=== PATIENT | female | born 1995 | race Caucasian/White ===

== ENCOUNTER 2017-08-13 19:29 | Emergency (ER) | END 2017-08-13 19:44 | disposition home or self-care (01) ==

== ENCOUNTER 2017-10-18 15:56 | Emergency (ER) | END 2017-10-18 23:27 | disposition home or self-care (01) ==

== ENCOUNTER 2018-11-23 21:43 | Emergency (ER) | payer MEDICAID ==
[~2018-11-23] VITALS: Ht 162.6 cm; Wt 74.0 kg
[~2018-11-23 21:43] MED LIST: CLIN100S VG; FLUC150T PO; IBUP-1542 PO; NAPR-985 PO; VALA10004 PO
[2018-11-23 21:45] VITALS: BP 141/65; PULSE 80; RESP 16; Ht 162.6 cm; Wt 74.0 kg
--- NOTE | 2018-11-24 00:09 | ERD ---
ER Documentation Chief Complaint Chief Complaint Pt reports 6 weeks preg and spotting this morning HPI Patient is a 22-year-old female, G1, P0, approximately 6 weeks , presents the ER for concerns of vaginal spotting which started this morning. Patient states she noticed blood when only wiping. Patient reports mild pelvic cramping. She denies any fevers, chills, nausea, vomiting or diarrhea. Patient also reports dysuria. Patient states her last mental period was 09-18-18. Patient does not know the name of her [employer]MENT [employer]. ROS All systems reviewed and are negative except as per history of present illness. Medications Home Meds Active Scripts Clindamycin Phosphate (Cleocin) 100 Mg Supp.vag, 100 MG VG QHS for 3 Days, #3 SUPP.VAG Prov:MARCELA,ADALBERTO 10/18/17 Naproxen* (Naprosyn*) 500 Mg Tablet, 500 MG PO BID PRN for PAIN AND/OR INFLAMMATION, #20 TAB Prov:MARCELA,ADALBERTO 10/18/17 Fluconazole* (Diflucan*) 150 Mg Tablet, 150 MG PO ONCE, #1 TAB 1 Refill Prov:MARCELA,ADALBERTO 10/18/17 Ibuprofen* (Motrin*) 600 Mg Tab, 600 MG PO Q6, #15 TAB Prov:CHANDLER PISANO PA-C 08/13/17 valACYclovir HCl (Valtrex) 1,000 Mg Tablet, 1000 MG PO TID for 7 Days, #21 TAB Prov:CHANDLER PISANO PA-C 08/13/17 Allergies Allergies: Coded Allergies: No Known Allergy (Unverified , 11/23/18) PMhx/Soc Medical and Surgical Hx: pt denies Medical Hx, pt denies Surgical Hx Hx Alcohol Use: No Hx Substance Use: No Hx Tobacco Use: No Smoking Status: Never smoker FmHx Family History: No diabetes Physical Exam Vitals Vital Signs Date Temp Pulse Resp B/P (MAP) Pulse Ox O2 O2 Flow FiO2 Time Delivery Rate 11/23/18 98.8 80 16 141/65 100 21:45 (90) Physical Exam GENERAL: Well-developed, well-nourished female. Appears in no acute distress. HEAD: Normocephalic, atraumatic. EYES: Pupils are equally reactive bilaterally. EOMs grossly intact. No conjunctival erythema. ENT: Moist mucous membranes. No uvula deviation. No kissing tonsils. NECK: Supple. No meningismus. Normal range of motion of the neck. LUNG: Clear to auscultation bilaterally. No rhonchi, wheezing, rales or coarse breath sounds. HEART: Regular rate and rhythm. No murmurs, rubs or gallops. ABDOMEN:. Soft, nontender, and nondistended. Positive bowel sounds in all four quadrants. No rebound tenderness, no guarding. (-) McBurney's point tenderness. No CVA tenderness. EXTREMITIES: Equal pulses bilaterally. No peripheral clubbing, cyanosis or edema. No unilateral leg swelling. NEUROLOGIC: Alert and oriented. Moving all four extremities without any difficul ty. Normal speech. Steady gait. SKIN: Normal color. Warm and dry. No rashes or lesions. Result Diagram: 11/24/18 0010 Results 24 hrs Laboratory Tests Test 11/24/18 00:10 White Blood Count 7.4 10^3/ul Red Blood Count 3.96 10^6/ul Hemoglobin 11.8 g/dl Hematocrit 35.4 % Mean Corpuscular Volume 89.4 fl Mean Corpuscular Hemoglobin 29.8 pg Mean Corpuscular Hemoglobin Concent 33.3 g/dl Red Cell Distribution Width 12.6 % Platelet Count 241 10^3/UL Mean Platelet Volume 9.3 fl Immature Granulocytes % 0.300 % Neutrophils % 60.3 % Lymphocytes % 28.8 % Monocytes % 6.8 % Eosinophils % 3.4 % Basophils % 0.4 % Nucleated Red Blood Cells % 0.0 /100WBC Immature Granulocytes # 0.020 10^3/ul Neutrophils # 4.5 10^3/ul Lymphocytes # 2.1 10^3/ul Monocytes # 0.5 10^3/ul Eosinophils # 0.3 10^3/ul Basophils # 0.0 10^3/ul Nucleated Red Blood Cells # 0.0 10^3/ul Urine Color YELLOW Urine Clarity SLIGHTLY CLOUDY Urine pH 8.0 Urine Specific [place] 1.008 Urine Ketones NEGATIVE mg/dL Urine Nitrite NEGATIVE mg/dL Urine Bilirubin NEGATIVE mg/dL Urine Urobilinogen NEGATIVE mg/dL Urine Leukocyte Esterase TRACE Jasson/ul Urine Microscopic RBC 1 /HPF Urine Microscopic WBC 2 /HPF Urine Squamous Epithelial Cells FEW /HPF Urine Hemoglobin 1+ mg/dL Urine Glucose NEGATIVE mg/dL Urine Total Protein NEGATIVE mg/dl Beta HCG, Quantitative 07357.0 mIU/ml Procedures/MDM ED COURSE: The patient was stable throughout ED course. I kept the patient and/or family informed of laboratory and diagnostic imaging results throughout the ED course. DIAGNOSTIC IMAGING: Read by radiologist. Patient: DANNA RAYMUNDO : 1995 Age: 22 Sex: F MR #: [id number] DOS: 11/24/18 2354 Ordering MD: VIRGINIA YOUNGER PA-C Location: [facility] Room/Bed: PROCEDURE: US OB. CLINICAL INDICATION: Vaginal bleeding in early . TECHNIQUE: Transabdominal and transvaginal views of the pelvis are available for review. COMPARISON: No prior studies are available for comparison. FINDINGS: A single intrauterine gestational sac is evident. A yolk sac is evident. [place]-rump length: 8 mm Gestational sac diameter: 2.0 cm heart rate: 139 beats per minute. Ultrasound estimated gestational age: 6 weeks 5 days by crown-rump length No ovarian or adnexal mass lesion is seen. There is no free fluid. . IMPRESSION: 1. Single live intrauterine with an estimated gestational age of 6 weeks 5 days by crown-rump length. This yields an estimated due date of 07/15/2019. RPTAT:AAJJ Physician Giovanna Date Time Electronically viewed and signed by Physician Giovanna on 11/24/2018 01:36 GW/ CC: VIRGINIA YOUNGER PA-C [id number] PROCEDURES: None. MEDICAL DECISION MAKING: This is a 22-year-old female, G1, P0, presents the ER for concerns of vaginal spotting. Vital signs were reviewed. Patient was afebrile. Patient was hemodynamically stable. Quantitative b-HCG was 144[address]. Patient's blood type was noted to be be positive, no indication for RhoGam at this time. CBC showed no evidence of systemic infection. Pelvic US showed Single live intrauterine with an estimated gestational age of 6 weeks 5 days by crown-rump length. This yields an estimated due date of 07/15/2019. Given these findings, the patients presentation is most consistent with threate edna . Low suspicion for ectopic , ruptured ectopic , molar , subchorionic hematoma, spontaneous , incomplete , complete , missed , placental abruption, placental previa, vasa previa, uterine rupture, anembyronic . DISCHARGE: At this time, patient is stable for discharge and outpatient management. I had a conversation at length with the patient about the concerns of vaginal bleeding during the 1st trimester of . Patient and/or family understands that her vaginal bleeding can be a normal finding or a sign of miscarriage. I have instructed the patient to follow-up with her OBGYN in 1-2 days for further monit oring including a repeat b-HCG level. I have instructed the patient to promptly return to the ER at any time for any new or worsening symptoms including increased pain, nausea, vomiting, continued bleeding, weakness, syncope or fever. The patient and/or family expressed understanding of and agreement with this plan. All questions were answered. Home care instructions were provided. Disclaimer: Inadvertent spelling and grammatical errors are likely due to EHR/dictation software use and do not reflect on the overall quality of patient care. Also, please note that the electronic time recorded on this note does not necessarily reflect the actual time of the patient encounter. Departure Diagnosis: Primary Impression: Vaginal bleeding in patient at less than 20 weeks ges... Patient Instructions: Bleeding During Early Referrals: [facility] YOU HAVE RECEIVED A MEDICAL SCREENING EXAM AND THE RESULTS INDICATE THAT YOU DO NOT HAVE A CONDITION THAT REQUIRES URGENT TREATMENT IN THE EMERGENCY DEPARTMENT. FURTHER EVALUATION AND TREATMENT OF YOUR CONDITION CAN WAIT UNTIL YOU ARE SEEN IN YOUR DOCTORS OFFICE WITHIN THE NEXT 1-2 DAYS. IT IS YOUR RESPONSIBILITY TO MAKE AN APPOINTMENT FOR FOLOW-UP CARE. IF YOU HAVE A PRIMARY DOCTOR --you should call your primary doctor and schedule an appointment IF YOU DO NOT HAVE A PRIMARY DOCTOR YOU CAN CALL OUR PHYSICIAN REFERRAL HOTLINE AT IF YOU CAN NOT AFFORD TO SEE A PHYSICIAN YOU CAN CHOSE FROM THE FOLLOWING [facility] [address] [facility]. [facility] [address] [facility] [facility] [address] [facility] [address] [facility] [facility] [address] [facility] [facility] [address] [facility]. [facility] YOU HAVE RECEIVED A MEDICAL SCREENING EXAM AND THE RESULTS INDICATE THAT YOU DO NOT HAVE A CONDITION THAT REQUIRES URGENT TREATMENT IN THE EMERGENCY DEPARTMENT. FURTHER EVALUATION AND TREATMENT OF YOUR CONDITION CAN WAIT UNTIL YOU ARE SEEN IN YOUR DOCTORS OFFICE WITHIN THE NEXT 1-2 DAYS. IT IS YOUR RESPONSIBILITY TO MAKE AN APPOINTMENT FOR FOLOW-UP CARE. IF YOU HAVE A PRIMARY DOCTOR --you should call your primary doctor and schedule and appointment IF YOU DO NOT HAVE A PRIMARY DOCTOR YOU CAN CALL OUR PHYSICIAN REFERRAL HOTLINE AT . IF YOU CAN NOT AFFORD TO SEE A PHYSICIAN YOU CAN CHOSE FROM THE FOLLOWING [facility] INSTITUTIONS: [facility] [address] [place] [address] [facility] [address] [place] [address] [facility] + [facility] [address] [place] [address] Additional Instructions: Repeat BHCG and US advised in 2 days. Llame al doctor MAANA y darryl preston ZORAN PARA DENTRO DE 1-2 PANCHAL.Dgale a la secretaria que nosotros le instruimos hacer esta zoran.Avise o llame si alvares condicin se empeora antes de la zoran. Regresa aqui si peor o no mejor. VIRGINIA YOUNGER PA-C Nov 24, 2018 00:08
== END 2018-11-24 02:19 | disposition home or self-care (01) ==
LOC: FTE 21:43
DX: O20.9 Hemorrhage in early pregnancy, unspecified (principal); Z3A.01 Less than 8 weeks gestation of pregnancy
CPT/HCPCS: 36415; 76801; 76817; 81001; 84702; 85025; 86900; 86901; Z7502